=== PATIENT | male | born 1960 | race Caucasian/White ===

== ENCOUNTER 2024-04-02 18:41 | Emergency (ER) | payer OTHER ==
[~2024-04-02] VITALS: Ht 185.4 cm; Wt 100.0 kg
[2024-04-02 18:45] VITALS: BP 146/88; PULSE 124; TEMP 99.7; O2SAT 97
[2024-04-02] MEDS: TETANUS, DIPHTHERIA, PERTUSSIS VAC/PF 0.5ML (>10YR OLD) IM ONE (20:06)
[2024-04-02] MEDS: ONDANSETRON 4MG ODT PO ONE (20:07)
[2024-04-02] MEDS: ACETAMINOPHEN 325MG TABLET PO ONE (20:07)
[2024-04-02] MEDS: BACITRACIN ZINC OINT UDPKT TOP ONE (20:07)
[2024-04-02] MEDS: LIDOCAINE HCL/EPINEPHRINE 1%-EPI 1:100,000 20ML VIAL INFIL ONE (20:30)
[2024-04-02 21:00] VITALS: RESP 16; O2SAT 100
== END 2024-04-02 21:00 | disposition home or self-care (01) ==
LOC: ER 18:41
DX: S01.01XA Laceration without foreign body of scalp, initial encounter (principal); G31.89 Other specified degenerative diseases of nervous system; W01.0XXA Fall on same level from slipping, tripping and stumbling without subsequent striking against object, initial encounter; Y93.89 Activity, other specified; Y92.89 Other specified places as the place of occurrence of the external cause; Y99.8 Other external cause status
CPT/HCPCS: 70450; 72125; 90715; 12001; 90471; 99285; Q0162; J3490; Z7610 ×2